=== PATIENT | male | born 1965 | race Caucasian/White ===

== ENCOUNTER 2023-11-10 11:07 | Emergency (ER) | payer BC, SELFPAY ==
[2023-11-10] VITALS (37 sets, daily range): BP systolic 106–144; BP diastolic 64–89; PULSE 67–82; RESP 13–28; TEMP 37.2; O2SAT 92–99
--- NOTE | 2023-11-10 11:00 | RT.EKG_ITS ---
APPROVED REPORT Exam: Resting ECG Reason for Exam: passed out Patient Location: E HR:74 bpm ECG Measurements Heart Rate 74 AXIS GA 165 P 48 QRSd 86 QRS 29 QT 358 T 10 QTc 398 Conclusion Sinus rhythm...normal P axis, V-rate 60- [address] elevation, anterior leads...ST >0.15mV in V1-V4
--- NOTE | 2023-11-10 11:39 | W.ED.GENAD ---
Discharge Plan Disposition Patient Disposition: Home Discharge Details Clinical Impression: Vasovagal syncope Primary Care Provider: Unknown,Unknown ED Provider: Leobardo Hester Home Meds and New Rx's Prescriptions: Continued krill oil 500 mg capsule 500 mg PO DAILY pyridoxine (vitamin B6) 100 mg tablet 100 mg PO DAILY mecobalamin (vitamin B12) 1,000 mcg tablet,chewable 1,000 mcg PO DAILY Discharge Instructions Instructions: Syncope (ED) Additional Instructions: Please continue to monitor your symptoms at home and return immediately for any new or significant worsening of your condition. Please be very mindful of any high stress, increased anxiety, or dehydration as these may exacerbate your symptoms. We have placed a referral to follow-up with our cardiology clinic for further testing and evaluation as needed. Referrals: [facility] [Provider Group] - 2 weeks Medical Decision Making Patient presenting to the emergency department for chief complaint of syncopal episode. Patient states for the past 20 years he has had intermittent and random syncopal episodes. They have increased slightly more recently and patient is pending following up with a new primary care provider due to just moving to the area. He does state prior to this he had been admitted for this with multiple cardiac tests including echo and blood work to be told that there was no obvious observable cause for his episode. Patient states that this morning he had woke up with a slight bloody nose and when going to the bathroom he got lightheaded and fell over. denies any full loss of consciousness but does state that he had some slight impaired memory of the event after it occurred. Patient denies any chest pain shortness of breath or other current symptoms. Physical exam is unremarkable with no focal neurological findings, no cardiac findings, no respiratory findings. Vital signs are all stable. Will perform labs and EKG to rule out emergent causes of syncope but given patient's history do question possible vagal event. Pending results will give IV fluids. Review of labs shows nondiagnostic CBC, CMP only shows slight elevation in creatinine of 1.4, nondetected negative troponin, urinalysis shows trace leukocyte esterase with reflexive culture but patient has no urinary symptoms so I doubt UTI. Discussed with patient further workup at previous hospital and admission which he stated nobody had done any imaging of the head but had done chest CTA and echo and full cardiac workup with no obvious finding. So we will perform CT imaging of brain and neck for any potential neurofindings. Reviewed imaging along with radiologist interpretation that shows no acute findings. Second troponin also reviewed and is negative. Reassessed patient and he states no further episodes while here. Upon further discussion does state that 1 factor that has been present with all these multiple episodes has been a level of anxiety and this morning felt like it could have been patient seeing the amount of blood from his nose. Patient did inform me though that he was instructed to follow-up with cardiology and was recommended a Holter monitor at time of discharge that he was in the process of moving from [place] to [place] during that time and was never able to follow-up after his inpatient stay. Will refer patient to cardiology clinic for further follow-up and testing as needed otherwise I do suspect that these are vasovagal events. After discussion of diagnosis and plan of care patient has no further needs, questions, or concerns and states clear understanding to return to the emergency department for any worsening symptoms. This documentation was generated using Flooved dictation system, please disregard any oddities of phrase or misspellings. Imaging Data Radiologic Study: Imaging: CT Scan Radiologist's impression: Exam(s) PROCEDURE INFORMATION: Exam: CTA Head With Contrast, Arteriography Exam date and time: 11/10/2023 1:43 PM Age: 58 years old Clinical indication: Syncope and collapse TECHNIQUE: Imaging protocol: Computed tomographic angiography of the head with contrast. Exam focused on the arteries. 3D rendering (Not supervised by radiologist): MIP and/or 3D reconstructed images were created by the technologist. Contrast material: OMNIPAQUE 350; Contrast volume: 85 ml; Contrast route: INTRAVENOUS (IV); COMPARISON: No relevant prior studies available. FINDINGS: ANTERIOR CIRCULATION: Right internal carotid artery: Intracranial segment is patent with no significant stenosis. No aneurysm. Right middle cerebral artery: No occlusion or significant stenosis. No aneurysm. Right anterior cerebral artery: No occlusion or significant stenosis. No aneurysm. Left internal carotid artery: Intracranial segment is patent with no significant stenosis. No aneurysm. Left middle cerebral artery: No occlusion or significant stenosis. No aneurysm. Left anterior cerebral artery: No occlusion or significant stenosis. No aneurysm. POSTERIOR CIRCULATION: Right vertebral artery: No occlusion or significant stenosis. No aneurysm. Left vertebral artery: No occlusion or significant stenosis. No aneurysm. Basilar artery: No occlusion or significant stenosis. No aneurysm. Right posterior cerebral artery: No occlusion or significant stenosis. No aneurysm. Left posterior cerebral artery: No occlusion or significant stenosis. No aneurysm. Brain: No definite mass, mass effect, or midline shift. Cerebral ventricles: No ventriculomegaly. Bones/joints: Unremarkable. No acute fracture. Soft tissues: Unremarkable. IMPRESSION: No large vessel stenosis or occlusion. PROCEDURE INFORMATION: Exam: CTA Neck With Contrast Exam date and time: 11/10/2023 1:43 PM Age: 58 years old Clinical indication: Syncope and collapse TECHNIQUE: Imaging protocol: Computed tomographic angiography of the neck with contrast. Exam focused on the cervical segments of the vasculature. 3D rendering (Not supervised by radiologist): MIP and/or 3D reconstructed images were created by the technologist. Contrast material: OMNIPAQUE 350; Contrast volume: 85 ml; Contrast route: INTRAVENOUS (IV); COMPARISON: No relevant prior studies available. FINDINGS: Right common carotid artery: No stenosis. No dissection or occlusion. Right internal carotid artery: No stenosis of the extracranial segment. No dissection or occlusion. Right external carotid artery: No occlusion or stenosis of the origin. Left common carotid artery: No stenosis. No dissection or occlusion. Left internal carotid artery: No stenosis of the extracranial segment. No dissection or occlusion. Left external carotid artery: No occlusion or stenosis of the origin. Right vertebral artery: No stenosis. No dissection or occlusion. Left vertebral artery: No stenosis. No dissection or occlusion. Soft tissues: Normal. No significant soft tissue swelling. Bones/joints: No acute fracture. IMPRESSION: No stenosis or occlusion. REFERENCES: NASCET CRITERIA. The degree of stenosis in the cervical segment of the internal carotid artery is based on NASCET criteria. Normal is no stenosis. Mild is less than 50% stenosis. Moderate is 50-69% stenosis. Severe is 70% to 99% stenosis. Total occlusion is no detectable patent lumen. Dictated and Authenticated by: Fernando Marino MD. Ordering:HANNA Booth MD Lab Data Lab results reviewed: Yes I reviewed the patient's lab results. HPI General Mode of arrival: ambulatory. Date/Time Provider Initiated Documentation: 11/10/23 11:08. Limitations to Documentation: no limitations. Information obtained by: patient, family and RN notes reviewed. History of Present Illness 58 year old M presents to the emergency department with the chief complaint of Syncope, described as mild and similar to prior episodes, Patient started experiencing this hour(s) (3.5) and it has been now resolved. No relieving factors improve symptom(s), Patient notes no other symptoms.. Patient did receive the following treatments prior to arrival, none Related Data Home Medications Medication Instructions Recorded Confirmed krill oil 500 mg capsule 500 mg PO DAILY 11/10/23 11/10/23 mecobalamin (vitamin B12) 1,000 1,000 mcg PO DAILY 11/10/23 11/10/23 mcg chewable tablet pyridoxine (vitamin B6) 100 mg 100 mg PO DAILY 11/10/23 11/10/23 tablet Allergies Allergy/AdvReac Type Severity Reaction Status Date / Time No Known Allergies Allergy Unverified 11/10/23 11:16 General Stated Complaint: [id number] REGGIE: 3 Review of Systems Constitutional Constitutional: Denies chills and Denies fever(s) ENT Ears, Nose, Mouth, and Throat: Reports epistaxis Cardiovascular Cardiovascular: Denies chest pain, Reports syncope, Denies rapid heart rate, Denies leg edema, Denies palpitations and Denies dyspnea Respiratory Respiratory: Denies cough and Denies dyspnea Gastrointestinal Gastrointestinal: Denies hematochezia, Reports nausea, Denies vomiting and Denies hematemesis Integumentary/Breasts Skin/Breast: Denies unusual bruising Neurologic Neurologic: Reports syncope Endocrine Endocrine: Denies palpitations PFSH All Active Problems (Updated 11/10/23 @ 15:11 by Leobardo Hester NP) Vasovagal syncope (Acute) Social History Smoking risk assessment performed?: No Exam Const General: cooperative, healthy appearing, comfortable, no acute distress, not diaphoretic and not ill appearing Nutritional Appearance: average body habitus Orientation: alert, awake and oriented x3 Limitations: mental status not altered [facility] Head: normal to inspection, normocephalic, atraumatic, no Carreon's sign and no raccoon eyes Ears: hearing grossly normal bilaterally and external ears normal General nose exam: external nose normal, nares normal, no nasal discharge, no epistaxis, no nasal polyps and normal septum Face and sinus: normal facial exam Mouth: oral mucosae normal Throat: posterior oropharynx normal Neck Neck: normal visual inspection, full ROM, trachea midline, supple and no anterior neck swelling Carotids: normal carotid upstroke and no bruits Chest Chest: normal inspection of the chest Resp Effort & Inspection: normal respiratory effort and able to speak in complete sentences Auscultation: clear to auscultation bilaterally Cardio Jugular venous pressure: no JVD Palpation: normal PMI Rate: regular rate Rhythm: regular rhythm Heart Sounds: S1 normal, S2 normal, no click, no gallops, no murmurs and no rubs Bruits: no abdominal aortic bruits and no carotid bruits Pulses: radial pulses present bilaterally 2+ Skin General skin exam: no rashes or lesions noted Neuro General: patient alert, patient awake, patient oriented x3, tone normal and moves all extremities Course Vital Signs Vital signs: Vital Signs Temperature 37.2 C 11/10/23 11:10 Pulse 81 11/10/23 11:10 Respiratory Rate 18 11/10/23 11:10 Blood Pressure 106/70 11/10/23 11:10 Pulse Oximetry 97 11/10/23 11:10 Temperature 37.2 C 11/10/23 11:10 Temperature Source Oral 11/10/23 11:10 Pulse 81 11/10/23 11:10 Respiratory Rate 18 11/10/23 11:10 Blood Pressure 106/70 11/10/23 11:10 Blood Pressure Position Sitting 11/10/23 11:10 Pulse Oximetry 97 11/10/23 11:10 Oxygen Delivery Method Room Air 11/10/23 11:10 Oxygen Flow Rate 0 11/10/23 11:10 Pain Level 0 11/10/23 11:10
[2023-11-10 11:50] LABS: Abs Immature Grans 0.02 10^3/uL (0.0-0.06); Absolute Basophil Count 0.04 10^3/uL (0.0-0.2); Absolute Eosinophil Count 0.15 10^3/uL (0.0-0.7); Absolute Lymphocyte Count 1.55 10^3/uL (1.2-3.4); Absolute Monocyte Count 0.77 10^3/uL (0.1-0.8); Absolute Neutrophil Count 7.18 10^3/uL (1.2-6.7); Basophils % 0.4; Eosinophils % 1.5; HCT 46.4 % (40.0-50.0); HGB 16.3 g/dL (13.5-17.5); Immature Grans % 0.2; MCH 32.7 pg (27.0-33.0); MCHC 35.1 % (32.0-36.0); MCV 93 fL (80-95); MPV 10.9 fL (8.0-11.0); Monocytes % 7.9; Platelet Count 166 10^3/uL (130-400); RBC 4.98 10^6/uL (4.36-5.78); RDW-SD 37.4 fL; WBC 9.71 10^3/uL (4.4-10.8)
[2023-11-10] MEDS: Normal Saline 1,000 ML 1000 ML IV (11:56)
[2023-11-10 12:22] LABS: ALT 33 U/L (16-63); AST 21 U/L (15-37); Alkaline Phosphatase 54 U/L (46-116); Anion Gap 5.6 mmol/L (3-11); BUN 15 mg/dL (7-18); Bilirubin, Total 0.9 mg/dL (0.2-1.0); CO2 30.4 mmol/L (21.0-32.0); CREATININE 1.4 mg/dL (0.70-1.30); Calcium 9.1 mg/dL (8.5-10.1); Chloride 104 mmol/L (98-107); Estimated GFR 58.26 (mL/min/1.73m2); Glucose 96 mg/dL (74-106); Magnesium 2.3 mg/dL (1.8-2.4); Potassium 4.7 mmol/L (3.5-5.1); Sodium 140 mmol/L (136-145); TSH (W/Ref FT4) 1.28 uIU/mL (0.36-3.74); Total Protein 7.1 g/dL (6.4-8.2); Troponin I < 50 ng/L (<or=60)
[2023-11-10 12:27] LABS: D-Dimer 369 ng/mlFEU (<500)
--- NOTE | 2023-11-10 12:45 | DI.CT_ITS ---
Exam(s) CT BRAIN NECK CTA EXAM: CT BRAIN NECK CTA CLINICAL HISTORY: syncope. TECHNIQUE: Imaging Protocol: Axial CT angiography was performed with multi-slice acquisition and mu lti-planar and/or 3D reconstructions. CONTRAST MATERIAL: Intravenous: Omnipaque 350 Contrast volume:structured data in ml COMPARISON: No exams were available for comparison FINDINGS: CTA Neck W: Aortic arch anatomy: The aortic arch anatomy is conventional and there is no significant stenosis at the origin of the great vessels off of the aortic arch. No intimal flap evident. Anterior circulation: Both common carotid arteries ascend with normal luminal diameters. At the level the carotid bulbs and proximal internal carotid arteries there is minimal plaque without hemodynamically significant stenosis evident. Posterior circulation: Both vertebral arteries originate in conventional fashion off of the subclavian arteries and there is no obvious stenosis at the origin of the vertebral arteries. Both vertebral arteries exhibit normal luminal diameters within the foramen transversarium. Both vertebral arteries contribute to the formation of the basilar artery at the skull base. CTA Brain W: Anterior circulation: Both internal carotid arteries are patent in the skull base-carotid canals as well as within the cave rnous sinuses. The supraclinoid aspects of the ICAs are patent. Both A1 segments are patent as are the anterior cer ebral arteries and there is no evidence of aneurysm at the level of the anterior communicating artery . Both middle cerebral arteries are patent with no evidence of significant stenosis nor intraluminal th rombus. There also no aneurysms of these vessels. Posterior circulation: The basilar artery ascends in the midline. Distally it gives off patent bilateral superior cerebella r arteries. Above this level the basilar artery terminates as patent bilateral posterior cerebral arteries. There is no evidence of aneurysm at the tip of the basilar artery nor elsewhere in the [id number] is. CT BRAIN: There is no evidence of intracranial hemorrhage, mass effect, or shift of midline structures. There are no extra-axial fluid collections. Ventricles are not enlarged or shifted. There are no ring enh ancing lesions in the brain and no abnormal meningeal enhancement. IMPRESSION: 1. Patent carotid arteries in the neck. No hemodynamically significant stenosis. 2. Patent vertebral arteries. 3. Patent intracranial arteries. 4. No ring enhancing lesions in the brain and there is no abnormal meningeal enhancement evident. RADIATION DOSE DELIVERED: Total DLP DATA REPOSITORY: All CT scans at this facility are submitted to the National Radiology Data Registry (NRDR) Dose Index Registry (DIR) with the [employer] (ACR). RADIATION OPTIMIZATION: All CT scans at this facility use at least one of these dose optimization te chniques: automated exposure control; mA and/or kV adjustment per patient size (includes targeted exa ms where dose is matched to clinical indication); or iterative reconstruction.
[2023-11-10 13:34] LABS: Bilirubin Negative (Negative); Blood Negative (Negative); Clarity Clear (Clear); Glucose Negative (Negative); Ketones Negative (Negative); Leukocyte Esterase Trace (Negative); Nitrite Negative (Negative); Specific Gravity 1.015 (1.005-1.025); Urobilinogen 0.2 mg/dL (Up to 0.2); pH 7.5 (5-8)
[2023-11-10 13:45] LABS: Bacteria Negative HPF (Negative); C & S Indicated? Yes; Casts Negative LPF (Negative); Crystals Negative HPF (Negative); Epithelial Cells Negative HPF (Negative); Mucus Negative (Negative); RBC Negative HPF (0-2); WBC 0-2 HPF (0-5)
[2023-11-10] MEDS: Omnipaque 350 MG/ML 100 ML BTL IJ (13:51)
[2023-11-10] MEDS: Normal Saline - Diluent 50 ML VIAL IJ (13:58)
--- NOTE | 2023-11-10 14:48 | DI.VRAD_ITS ---
PROCEDURE INFORMATION: Exam: CTA Head With Contrast, Arteriography Exam date and time: 11/10/2023 1:43 PM Age: 58 years old Clinical indication: Syncope and collapse TECHNIQUE: Imaging protocol: Computed tomographic angiography of the head with contrast. Exam focused on the arteries. 3D rendering (Not supervised by radiologist): MIP and/or 3D reconstructed images were created by the technologist. Contrast material: OMNIPAQUE 350; Contrast volume: 85 ml; Contrast route: INTRAVENOUS (IV); COMPARISON: No relevant prior studies available. FINDINGS: ANTERIOR CIRCULATION: Right internal carotid artery: Intracranial segment is patent with no significant stenosis. No aneurysm. Right middle cerebral artery: No occlusion or significant stenosis. No aneurysm. Right anterior cerebral artery: No occlusion or significant stenosis. No aneurysm. Left internal carotid artery: Intracranial segment is patent with no significant stenosis. No aneurysm. Left middle cerebral artery: No occlusion or significant stenosis. No aneurysm. Left anterior cerebral artery: No occlusion or significant stenosis. No aneurysm. POSTERIOR CIRCULATION: Right vertebral artery: No occlusion or significant stenosis. No aneurysm. Left vertebral artery: No occlusion or significant stenosis. No aneurysm. Basilar artery: No occlusion or significant stenosis. No aneurysm. Right posterior cerebral artery: No occlusion or significant stenosis. No aneurysm. Left posterior cerebral artery: No occlusion or significant stenosis. No aneurysm. Brain: No definite mass, mass effect, or midline shift. Cerebral ventricles: No ventriculomegaly. Bones/joints: Unremarkable. No acute fracture. Soft tissues: Unremarkable. IMPRESSION: No large vessel stenosis or occlusion. PROCEDURE INFORMATION: Exam: CTA Neck With Contrast Exam date and time: 11/10/2023 1:43 PM Age: 58 years old Clinical indication: Syncope and collapse TECHNIQUE: Imaging protocol: Computed tomographic angiography of the neck with contrast. Exam focused on the cervical segments of the vasculature. 3D rendering (Not supervised by radiologist): MIP and/or 3D reconstructed images were created by the technologist. Contrast material: OMNIPAQUE 350; Contrast volume: 85 ml; Contrast route: INTRAVENOUS (IV); COMPARISON: No relevant prior studies available. FINDINGS: Right common carotid artery: No stenosis. No dissection or occlusion. Right internal carotid artery: No stenosis of the extracranial segment. No dissection or occlusion. Right external carotid artery: No occlusion or stenosis of the origin. Left common carotid artery: No stenosis. No dissection or occlusion. Left internal carotid artery: No stenosis of the extracranial segment. No dissection or occlusion. Left external carotid artery: No occlusion or stenosis of the origin. Right vertebral artery: No stenosis. No dissection or occlusion. Left vertebral artery: No stenosis. No dissection or occlusion. Soft tissues: Normal. No significant soft tissue swelling. Bones/joints: No acute fracture. IMPRESSION: No stenosis or occlusion. REFERENCES: NASCET CRITERIA. The degree of stenosis in the cervical segment of the internal carotid artery is based on NASCET criteria. Normal is no stenosis. Mild is less than 50% stenosis. Moderate is 50-69% stenosis. Severe is 70% to 99% stenosis. Total occlusion is no detectable patent lumen. Dictated and Authenticated by: Fernando Marino MD. Ordering:HANNA Booth MD
[2023-11-10 14:52] LABS: Troponin I < 50 ng/L (<or=60)
--- NOTE | 2023-11-10 15:13 | NUR.NOTE ---
Referral faxed to [facility] for vasovagal syncope/see 11/10/23 ED note. In 1 to 2 weeks. Nursing Note:
== END 2023-11-10 15:17 | disposition home or self-care (01) ==
PROVIDERS: Emergency Provider Nurse Practitioner Family
DX: R55 Syncope and collapse (principal)
CPT/HCPCS: 36415; 70496; 70498; 80053; 93005; 96360; 99285; 81003; 81015; 83735; 84443; 84484; 85025; 85379; 87086; 93010; 99284; J3490

== ENCOUNTER 2023-11-26 12:12 | Outpatient (RCR) | payer BC, SELFPAY ==
--- NOTE | 2023-11-26 12:00 | HOLTER_ITS ---
APPROVED REPORT Exam Type: HOLTER MONITOR APPLICATION Reason for Test: passing out Patient Location: O Conclusion 1. Sinus rhythm, rate range 53-113(average 73) bpm. 2. Few unifocal PVCs. No VT or SVT. 3. No pauces 4. No atrial fibrillation.
== END 2023-12-19 23:59 | disposition home or self-care (01) ==
LOC: CARDOPNVT 12:12
PROVIDERS: Visit Provider Internal Medicine Interventional Cardiology
DX: R55 Syncope and collapse (principal)
CPT/HCPCS: 93225; 93226

== ENCOUNTER → 2023-12-06 01:27 | Outpatient (CLI) | payer BC, SELFPAY ==
--- NOTE | 2023-12-06 06:11 | ETT_ITS ---
APPROVED REPORT Exam: Exercise Treadmill Patient Location: Out-Patient Room/Bed: Stress Nurse: Ellen Qiu RN Ordering Provider:FARIBA RIVERA, Contact Number: BMI: 29.44 Baseline Rhythm: Sinus Rhythm Indications: Family Hx, Fatigue Medical History Medical History: vasovagal syncope, orthostatic hypotension, chronic low back pain, vitamin D deficie ncy Cardiac Medications: None Allergies: NKA Cardiac Risk Factors: Family Hx Previous Cardiac Procedures: None Pretest Chest Pain Characteristics: None Exercise History: Indeterminate Physical Disabilities: None Lung Sounds: Clear to auscultation Heart Sounds: Regular Stress Test Details Test: Exercise stress testing was performed using a Yogi protocol. Rest Stress HR Resting HR Supine: 63 bpm Max Heart Rate (APMHR): 162 bpm Resting HR Standin bpm Target HR (85% APMHR): 138 bpm Max HR Achieved: 140 bpm % of APMHR: 86 Recovery HR: 85 bpm HR response to stress: Normal HR response to stress BP Resting BP Supine: 98/68 mmHg Resting BP Standin/64 mmHg Max BP: 130/70 mmHg Recovery BP: 118/66 mmHg BP response to stress: Normal blood pressure response to stress. ECG Resting ECG: Sinus Rhythm Ectopy: None Stress ECG: Sinus Rhythm, Sinus Tachycardia ST Change: No significant ST segment changes noted Arrhythmia: None Recovery ECG: Sinus Rhythm Recovery ST Change: No significant ST segment changes noted Recovery Arrhythmia: None Clinical Reason for Termination: Fatigue Stress Symptoms: None Exercise duration: 9 min00 sec Highest Stage Reached: Stage 3: 3.4 mph at 14% grade. Exercise capacity: 10.16 METs Angina Score: None Patino Treadmill Score: 7.7 Rate Pressure Product: [id number] Stress ECG Conclusion 1. 1. Normal clinical response 2. 2. Normal HR response 3. 3. Normal BP response 4. 4. Normal ECG response 5. Impresssion: Normal chronotropic response, no inducible ischemia. Patino Treadmill Score is 7.7 which is Low risk. Stress Test Summary STAGE Time (mins) Speed (mph) Grade (%) HR BP SpO2 SYMPTOMS METS Supine 63 98/68 96 Standing 77 100/64 1 3 1.7 10 100 130/70 96 4.5 2 6 2.5 12 113 7 3 9 3.4 14 136 96 10 1 min recovery 115 128/52 98 Dizzy 3 min recovery 92 124/56 98 Dizziness subsided 6 min recovery 85 118/66 97
== END ==
PROVIDERS: Visit Provider Internal Medicine Interventional Cardiology
DX: R53.83 Other fatigue (principal); Z82.49 Family history of ischemic heart disease and other diseases of the circulatory system
CPT/HCPCS: 93017

== ENCOUNTER 2024-03-31 05:04 | Outpatient (CLI) | payer BC, SELFPAY ==
--- NOTE | 2024-04-01 20:50 | PDOC.EEG_ITS ---
Neurology EEG EEG: [facility] Department of Neurology EEG REPORT Date of Recording: Interpreting Physician: Dr. Alexa Gould PCP/Referring Provider: Matthew Downs NP Reason for study: Jass Romero is a 58 year-old with a syncopal vs seizure spell in Oct 2023 with constant ASHLEY since. Current Medications: Home Medications Medication Instructions Recorded Confirmed Type krill oil 500 mg capsule 500 mg PO DAILY 11/10/23 03/20/24 History mecobalamin (vitamin B12) 1,000 1,000 mcg PO DAILY 11/10/23 03/20/24 History mcg chewable tablet pyridoxine (vitamin B6) 100 mg 100 mg PO DAILY 11/10/23 03/20/24 History tablet METHODS: A 21 channel digitized electroencephalogram was performed in the [facility] Neurophysiology Laboratory. The 10/20 international system of electrode placement was used and bipolar and referential electrode montages were recorded. In addition to EEG the patient was monitored for EKG and lateral/vertical eye movements. Activation procedures of photic stimulation and hyperventilation were performed if applicable. Video was used during activation procedures and during events where applicable. The duration of the recording was 30 minutes. DESCRIPTION OF EEG: The patient was noted to be awake and drowsy during the recording. During maximal wakefulness a 9-Hz posterior background rhythm was present which was well-modulated, symmetrical, reactive to eye opening, and of moderate voltage. With eye opening the background activity changed to a low voltage mixture of alpha, beta, and occasional theta range frequencies. Faster frequencies were present in the bilateral anterior head regions. There was a normal anterior- posterior voltage gradient. During drowsiness, there was attenuation of the posterior dominant background rhythm and vertex waves. Stage II sleep was present with symmetrical sleep spindles, K-complexes, and vertex waves. Activating Procedures: Photic stimulation was performed which produced no posterior driving response. Hyperventilation was performed with moderate effort and produced no physiological slowing of the background. EKG: EKG revealed normal sinus rhythm. INTERPRETATION: This EEG is normal during the awake and sleep states as well as during photic stimulation and hyperventilation. PRIOR EEG: none CLINICAL CORRELATION: No focal regions of cerebral dysfunction or epileptiform activity was present. Epilepsy remains a clinical diagnosis and a normal EEG does not rule out epilepsy. Clinical correlation is advised. Alexa Gould MD Date of service: 03/31/24
== END 2024-03-31 05:05 | disposition home or self-care (01) ==
LOC: RT 05:04
PROVIDERS: PCP Nurse Practitioner Acute Care; Visit Provider Nurse Practitioner Acute Care
DX: R55 Syncope and collapse (principal)
CPT/HCPCS: 95819